=== PATIENT | male | born 1950 | race Caucasian/White ===

== ENCOUNTER 2020-06-10 06:38 | Inpatient (IN) | payer MEDICARE, OTHER ==
[~2020-06-10] VITALS: Ht 167.6 cm; Wt 121.6 kg
[~2020-06-10 06:38] MED LIST: ALDACTONE 25MG25 MG PO; ATORVASTATIN CA80 MG PO; CALAN SR240 MG PO; CELEBREX100 MG PO; CLOPIDOGREL75 MG PO; COREG 25MG TAB25 MG PO; COREG6.25 MG PO; ECOTRIN81 MG PO; FAMOTIDINE40 MG PO; FINASTERIDE5 MG PO; FLOMAX0.4 MG PO; GLUCOPHAGE1000 MG PO; HYDROCHLOROTHIA25 MG PO; MONTELUKAST SOD10 MG PO; NITROSTAT0.4 MG SL; NORCO 7.5-3251 EACH PO; PLAVIX 75 MG TA75 MG PO; PROSCAR5 MG PO; PROTONIX40 MG PO; RANITIDINE HCL150 MG PO; SEROQUEL25 MG PO; TAMSULOSIN HCL0.4 MG PO; ULTRAM50 MG PO; VERAPAMIL ER240 MG PO; XANAX0.5 MG PO; ZYLOPRIM 100 M100 MG PO
[2020-06-10] MEDS ORDERED: QUETIAPINE FUMA25 MG PO (07:10)
[2020-06-10] MEDS ORDERED: METFORMIN HCL1000 MG PO (07:11)
[2020-06-10] MEDS ORDERED: VITAMIN D3125 MCG PO (07:11)
[2020-06-10 07:31] LABS: HEMOGLOBIN 12.3 gm/dl (14.0-17.5); RED BLOOD COUNT 4.22 M/UL (4.20-5.50); WHITE BLOOD COUNT 10.5 K/UL (4.5-11.0)
[2020-06-10] MEDS ORDERED: HYDRALAZINE HCL50 MG PO (09:32)
[2020-06-10] MEDS ORDERED: ALPRAZOLAM0.5 MG PO (09:36)
[2020-06-10] MEDS ORDERED: NITROGLYCERIN0.4 MG SL (09:45)
[2020-06-10] MEDS ORDERED: ZYRTEC10 MG PO (11:20)
[2020-06-10] MEDS ORDERED: CYMBALTA30 MG PO (11:21)
[2020-06-10] MEDS ORDERED: TYLENOL EXTRA500 MG PO (11:22)
[2020-06-10] MEDS ORDERED: GABAPENTIN100 MG PO (11:52)
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
[2020-06-11 10:11] LABS: RED BLOOD COUNT 4.51 M/UL (4.20-5.50); WHITE BLOOD COUNT 9.9 K/UL (4.5-11.0)
[2020-06-11 10:32] LABS: BUN/CREATININE RATIO 20 (0-10)
--- NOTE | 2020-06-12 02:20 | NUR ---
at 0130 patient was showing signs of aggression cursing at staff jerking things from staff hands. removing O2 refusing to allow it to be put back on. guard still at doorway. will continue to observe
[2020-06-12 06:50] LABS: HEMOGLOBIN 12.5 gm/dl (14.0-17.5); RED BLOOD COUNT 4.21 M/UL (4.20-5.50); WHITE BLOOD COUNT 8.3 K/UL (4.5-11.0)
[2020-06-12 07:40] LABS: BUN/CREATININE RATIO 20 (0-10)
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
--- NOTE | 2020-06-13 02:46 | NUR ---
ROUNDED ON PATIENT ONCE AGAIN, THE PATIENT IS BEING NONCOMPLIANT WITH MONITORING AND HIS CARE. HIS BED ALARM IS ON, NON SLIP SOCKS, BED ALARM IN REACH, PERSONAL BELONGINGS ARE IN REACH, BED IS LOCKED AND IN LOWEST POSITION. MD AWARE OF NONCOMPLIANCE.
[2020-06-13 10:01] LABS: HEMOGLOBIN 14.4 gm/dl (14.0-17.5); WHITE BLOOD COUNT 9.2 K/UL (4.5-11.0)
[2020-06-13 10:02] LABS: RED BLOOD COUNT 4.8 M/UL (4.20-5.50)
[2020-06-13] MEDS ORDERED: DOXYCYCLINE HY100 M2 PO (20:47)
[2020-06-13] MEDS ORDERED: CRESTOR 10 MG T10 MG PO (20:47)
[2020-06-13] MEDS ORDERED: AMOX TR-K CLV1 EAC4 PO (20:47)
[2020-06-13] MEDS ORDERED: MULTAQ 400 MG400 MG PO (20:47)
[2020-06-13] MEDS ORDERED: ELIQUIS 5 MG TAB5 MG PO (20:47)
[2020-06-14 07:01] LABS: HEMOGLOBIN 13.6 gm/dl (14.0-17.5); RED BLOOD COUNT 4.57 M/UL (4.20-5.50); WHITE BLOOD COUNT 8.8 K/UL (4.5-11.0)
[2020-06-15 02:55] LABS: HEMOGLOBIN 12.8 gm/dl (14.0-17.5); RED BLOOD COUNT 4.26 M/UL (4.20-5.50); WHITE BLOOD COUNT 8.5 K/UL (4.5-11.0)
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
[2020-06-15] MEDS ORDERED: DOXYCYCLINE HY100 M2 PO (16:32)
[2020-06-15] MEDS ORDERED: QUETIAPINE FUM100 MG PO (16:32)
[2020-06-15] MEDS ORDERED: AMOX TR-K CLV1 EAC4 PO (16:32)
[2020-06-15] MEDS ORDERED: CRESTOR 10 MG T10 MG PO (16:32)
[2020-06-15] MEDS ORDERED: ELIQUIS 5 MG TAB5 MG PO ×2 (16:32→16:35)
[2020-06-15] MEDS ORDERED: MULTAQ 400 MG400 MG PO (16:33)
== END 2020-06-15 17:15 | disposition home or self-care (01) | DRG 193 ==
LOC: ER1 06:38 → CCU 11:15 → PROG CARE 11:15
PROVIDERS: Emergency Medicine; Physician Assistant; ADMIT Internal Medicine
PROC: B24BZZ4 Ultrasonography of Heart with Aorta, Transesophageal (ICD-10-PCS; principal; 2020-06-10)
PROC: 5A09457 Assistance with Respiratory Ventilation, 24-96 Consecutive Hours, Continuous Positive Airway Pressure (ICD-10-PCS; 2020-06-10)
DX: J15.9 Unspecified bacterial pneumonia (principal); J96.01 Acute respiratory failure with hypoxia; J96.02 Acute respiratory failure with hypercapnia; G93.41 Metabolic encephalopathy; E87.2 Acidosis; E66.2 Morbid (severe) obesity with alveolar hypoventilation; N17.9 Acute kidney failure, unspecified; J44.1 Chronic obstructive pulmonary disease with (acute) exacerbation; J44.0 Chronic obstructive pulmonary disease with (acute) lower respiratory infection; F05 Delirium due to known physiological condition; Z20.822 Contact with and (suspected) exposure to COVID-19; E11.22 Type 2 diabetes mellitus with diabetic chronic kidney disease; Z96.653 Presence of artificial knee joint, bilateral; M10.9 Gout, unspecified; I25.10 Atherosclerotic heart disease of native coronary artery without angina pectoris; G47.50 Parasomnia, unspecified; D63.1 Anemia in chronic kidney disease; F41.9 Anxiety disorder, unspecified; I70.0 Atherosclerosis of aorta; I27.20 Pulmonary hypertension, unspecified; I12.9 Hypertensive chronic kidney disease with stage 1 through stage 4 chronic kidney disease, or unspecified chronic kidney disease; I07.1 Rheumatic tricuspid insufficiency; I48.0 Paroxysmal atrial fibrillation; F17.210 Nicotine dependence, cigarettes, uncomplicated; E78.5 Hyperlipidemia, unspecified; I37.1 Nonrheumatic pulmonary valve insufficiency; F31.9 Bipolar disorder, unspecified; N18.30 Chronic kidney disease, stage 3 unspecified; Z79.01 Long term (current) use of anticoagulants; Z86.73 Personal history of transient ischemic attack (TIA), and cerebral infarction without residual deficits; Z79.4 Long term (current) use of insulin; Z95.5 Presence of coronary angioplasty implant and graft; Z82.49 Family history of ischemic heart disease and other diseases of the circulatory system; Z90.49 Acquired absence of other specified parts of digestive tract
CPT/HCPCS: ECHO; 0240U; 36415; 36600; 71045; 71046; 80048; 80053; 82550; 82553; 82565; 82803; 82962; 83036; 83605; 83735; 83880; 84439; 84443; 84484; 85025; 85027; 85610; 85730; 87040; 93005; 93306; 94640; 94660; 94664; 94760; 96374; 96375; 97110-GP-CQ; 97116-GP-CQ; 97161; 97166; 97530; 97535; 99285; J0456; J0696; J1630; J1940; J2060; J2930; J7030; J7040

== ENCOUNTER → 2020-06-24 | Outpatient (CLI) | payer MEDICARE, OTHER ==
[~2020-06-24] MED LIST changes: +ALPRAZOLAM0.5 MG PO; +AMOX TR-K CLV1 EAC4 PO; +CRESTOR 10 MG T10 MG PO; +CYMBALTA30 MG PO; +DOXYCYCLINE HY100 M2 PO; +ELIQUIS 5 MG TAB5 MG PO; +GABAPENTIN100 MG PO; +HYDRALAZINE HCL50 MG PO; +METFORMIN HCL1000 MG PO; +MULTAQ 400 MG400 MG PO; +NITROGLYCERIN0.4 MG SL; +QUETIAPINE FUM100 MG PO; +QUETIAPINE FUMA25 MG PO; +TYLENOL EXTRA500 MG PO; +VITAMIN D3125 MCG PO; +ZYRTEC10 MG PO
== END ==
LOC: EXRD 10:38
DX: I50.9 Heart failure, unspecified (principal); R91.8 Other nonspecific abnormal finding of lung field
CPT/HCPCS: 71046

== ENCOUNTER → 2020-08-25 | Outpatient (CLI) | payer MEDICARE, OTHER | LOC: KOH-I 11:30 → EXRD 12:13 → KOH-I 09-24 13:00 | DX: N28.1 Cyst of kidney, acquired (principal); N26.1 Atrophy of kidney (terminal) | CPT/HCPCS: 76775 ==

== ENCOUNTER → 2021-06-22 | Outpatient (CLI) | payer MEDICARE, OTHER | LOC: HEART 5 07:30 | DX: I25.10 Atherosclerotic heart disease of native coronary artery without angina pectoris (principal); I50.9 Heart failure, unspecified; R07.9 Chest pain, unspecified; R06.02 Shortness of breath | CPT/HCPCS: 78452; A9502; J2785 ==

== ENCOUNTER 2021-10-20 11:42 | Emergency (ER) | payer MEDICARE, OTHER ==
[2021-10-20 12:28] LABS: HEMOGLOBIN 14.2 gm/dl (14.0-17.5); RED BLOOD COUNT 4.85 M/UL (4.20-5.50); WHITE BLOOD COUNT 18.1 K/UL (4.5-11.0)
== END 2021-10-20 16:00 | disposition expired ==
LOC: ER1 11:42
PROVIDERS: Emergency Medicine
DX: I46.9 Cardiac arrest, cause unspecified (principal); I25.2 Old myocardial infarction; E11.9 Type 2 diabetes mellitus without complications; E78.5 Hyperlipidemia, unspecified; I10 Essential (primary) hypertension; Z95.5 Presence of coronary angioplasty implant and graft; Z86.73 Personal history of transient ischemic attack (TIA), and cerebral infarction without residual deficits
CPT/HCPCS: 36600; 71045; 80053; 82803; 83605; 83690; 85025; 92950; 93005; 94002; 99285